=== PATIENT | female | born 1925 | race Asian ===

== ENCOUNTER → 2017-01-27 | Outpatient (CLI) | payer OTHER ==
[~2017-01-27] MED LIST: ASPI-556 PO; CALC-724 PO; LOSA1TAB36 PO; MECL-111; METF500T4 PO; METO-325 PO; RABE20TA60; RALO60 PO; [UNRECOGNIZED DRUG - OTHER]
== END | disposition home or self-care (01) ==
LOC: RADPV 10:38
PROVIDERS: ATTEND Internal Medicine
DX: M20.11 Hallux valgus (acquired), right foot (principal); M19.071 Primary osteoarthritis, right ankle and foot

== ENCOUNTER → 2017-07-24 | Outpatient (CLI) | payer OTHER ==
[~2017-07-24] MED LIST changes: -METO-325 PO; +METO-391 PO
== END | disposition home or self-care (01) ==
LOC: RADPV 13:30
PROVIDERS: ATTEND Internal Medicine
DX: J98.11 Atelectasis (principal); I70.0 Atherosclerosis of aorta
CPT/HCPCS: 71020

== ENCOUNTER → 2017-08-13 | Outpatient (CLI) | payer OTHER ==
[~2017-08-13] MED LIST changes: +FEXO-58 PO; +LOSA100T29 PO; -LOSA1TAB36 PO; +LOSA1TAB42 PO; -MECL-111; +MECL-111 PO; +METF500T7 PO; +OMEP10CA41 PO; +ZIAC5 PO
== END | disposition home or self-care (01) ==
LOC: RADPV 10:09
PROVIDERS: ATTEND Internal Medicine
DX: M19.032 Primary osteoarthritis, left wrist (principal); I70.298 Other atherosclerosis of native arteries of extremities, other extremity; M79.89 Other specified soft tissue disorders

== ENCOUNTER 2017-10-22 11:01 | Emergency (ER) | payer OTHER ==
[~2017-10-22] VITALS: Ht 144.8 cm; Wt 44.5 kg
[~2017-10-22 11:01] MED LIST changes: -FEXO-58 PO; -LOSA100T29 PO; -METF500T7 PO; -OMEP10CA41 PO; -ZIAC5 PO
[2017-10-22 11:17] LABS: GLUCOSE,POINT OF CARE 181 MG/DL (70-110)
[2017-10-22] MEDS ORDERED: DiphenhydrAMINE HCL 50 MG/ML VIAL IVP ONE (11:45)
[2017-10-22] MEDS ORDERED: MethylPREDNISolone SOD SUCC 125 MG/2 ML VIAL IVP ONE (11:45)
[2017-10-22] MEDS ORDERED: LOSA100T29 PO (11:48)
[2017-10-22] MEDS ORDERED: ZIAC5 PO (11:48)
[2017-10-22] MEDS ORDERED: OMEP10CA41 PO (11:48)
[2017-10-22] MEDS ORDERED: METF500T7 PO (11:48)
[2017-10-22] MEDS ORDERED: FEXO-58 PO (11:50)
[2017-10-22 12:34] LABS: CALCIUM, TOTAL 8.8 mg/dL (8.8-10.5); CREATININE 1.53 mg/dL (0.60-1.30); POTASSIUM 4.6 mmol/L (3.5-5.1)
[2017-10-22 12:40] LABS: ALBUMIN 3.3 g/dL (3.4-5.0); BILIRUBIN,TOTAL 0.4 mg/dL (0.1-1.0); TOTAL PROTEIN, SERUM 6.8 g/dL (6.4-8.2)
[2017-10-22] MEDS ORDERED: IOVERSOL 350 MG/ML 100 ML VIAL ONE (12:42)
[2017-10-22 12:57] LABS: BASOPHILS % (AUTO) 0.3 % (0.0-2.0); EOSINOPHILS % (AUTO) 4.1 % (1.0-6.0); HEMATOCRIT 37.2 % (36-46); HEMOGLOBIN 12.5 g/dL (12.0-16.0); LYMPHOCYTES # (AUTO) 0.4 K/uL (1.0-4.8); LYMPHOCYTES % (AUTO) 10.1 % (22.0-44.0); MEAN CORPUSCULAR HEMOGLOBIN 31.7 pg (26.0-34.0); MEAN CORPUSCULAR HGB CONC 33.6 G/dL (31.0-37.0); MEAN CORPUSCULAR VOLUME 94 fL (80-100); MONOCYTES # (AUTO) 0.4 K/uL (0.1-1.0); MONOCYTES % (AUTO) 9.1 % (2.0-9.0); NEUTROPHILS # (AUTO) 3.1 K/uL (1.8-7.7); NEUTROPHILS % (AUTO) 76.4 % (40.0-70.0); PLATELET COUNT (AUTO) 218 K/uL (150-450); RED BLOOD CELL COUNT(AUTO) 3.94 MIL/uL (4.00-5.20); RED CELL DISTRIBUTION WIDTH 13.9 % (11.5-14.5); WHITE BLOOD COUNT (AUTO) 4.1 K/uL (4.5-11.0)
[2017-10-22] MEDS ORDERED: BENZOCAINE 20% 50 MCG/SPRAY 57 GM TP ONE (13:15)
[2017-10-22 13:51] VITALS: BP 130/78
== END 2017-10-22 14:01 | disposition home or self-care (01) ==
LOC: EMS 11:02
DX: C09.9 Malignant neoplasm of tonsil, unspecified (principal); M19.90 Unspecified osteoarthritis, unspecified site; E11.9 Type 2 diabetes mellitus without complications; I10 Essential (primary) hypertension
CPT/HCPCS: 36415; 70491; 80053; 82962; 85025; 96374; 96375; 99285; J1200; J2930; Q9967